=== PATIENT | female | born 2000 | race Two or more races ===

== ENCOUNTER 2024-04-30 17:35 | Emergency (ER) | payer MEDICAID, OTHER ==
[~2024-04-30] VITALS: Ht 154.9 cm; Wt 67.3 kg
--- NOTE | 2024-04-30 18:26 | ED.PDOC ---
General HPI Comments 23 y.o female presents to the ED for a chief complaint of back pain radiating to bilateral flank and to abdomen that started 2 hours ago. Patient describes pain as sharp, taking her breath away and constant. Patient reports similar pain on 04/12/24, went to the ED and had CT scan with blood work done but was not updated on diagnosis. Patient reports nausea and vomiting today with vomiting improving pain. Vital signs were stable on arrival. Chief Complaint: Flank Pain Time Seen by MD: 18:21 Primary Care Provider: NONE Reviewed notes: Nurses Notes, Medications, Allergies Allergies: Coded Allergies: NO KNOWN ALLERGIES (Unverified , 04/30/24) Information Source: Patient Mode of Arrival: Ambulatory Severity: Moderate Timing: Hours Duration: Since onset Onset: Spontaneous History of: None Location: Abdomen, (R) Flank, (L)Flank associated signs and symptoms: Nausea, Vomiting, Flank Pain, Back Pain Past Medical History PAST MEDICAL HISTORY: Denies Surgical History: Denies all surgeries PARTS ROOM ASSOCIATE History: No Pertinent PARTS ROOM ASSOCIATE History Family History Family History: Reviewed,noncontributory to illness Social History Smoker: Non-Smoker Alcohol: Denies ETOH Use Drugs: Denies Drug Use Lives In: Home Constitutional: denies: chills, diaphoresis, fatigue, fever, malaise, sweats, weakness, others EENTM: denies: blurred vision, double vision, ear bleeding, ear discharge, ear drainage, ear pain, ear ringing, eye pain, eye redness, hearing loss, mouth pain, mouth swelling, nasal discharge, nose bleeding, nose congestion, nose pain, photophobia, tearing, throat pain, throat swelling, voice changes, others Respiratory: denies: cough, hemoptysis, orthopnea, SOB at rest, shortness of breath, SOB with excertion, stridor, wheezing, others Cardiovascular: denies: chest pain, dizzy spells, diaphoresis, Dyspnea on exertion, edema, irregular heart beat, left arm pain, lightheadedness, palpitati ons, PND, syncope, others Gastrointestinal: reports: abdominal pain, nausea, vomiting; denies: abdomen distended, blood streaked bowels, constipated, diarrhea, dysphagia, difficulty swallowing, hematemesis, melena, poor appetite, poor fluid intake, rectal bleeding, rectal pain, others Genitourinary: reports: flank pain; denies: abnormal vagina bleeding, burning, dyspareunia, dysuria, frequency, hematuria, incontinence, pain, , vagina discharge, urgency, others Neurological: denies: dizziness, fainting, headache, left sided numbness, left sided weakness, numbness, paresthesia, pre-existing deficit, right sided numbness, right sided weakness, seizure, speech problems, tingling, tremors, weakness, others Musculoskeletal: reports: back pain; denies: gout, joint pain, joint swelling, muscle pain, muscle stiffness, neck pain, others Integumetry: denies: bruises, change in color, change in hair/nails, dryness, laceration, lesions, lumps, rash, wounds, others Allergic/Immunocompromised: denies: Difficulty Healing, Frequent Infections, Hives, Itching, others Hematologic/Lymphatic: denies: anemia, blood clots, easy bleeding, easy bru ising, swollen glands, others Endocrine: denies: excessive hunger, excessive sweating, excessive thirst, e xcessive urination, flushing, intolerance to cold, intolerance to heat, unexplained weight gain, unexplained weight loss, others Psychiatric: denies: anxiety, bipolar disorder, depression, hopeless, panic disorder, schizophrenia, sleepless, suicidal, others All Other Systems: Reviewed and Negative Physical Exam General Appearance: Moderate Distress (Lday-[id number] distress due to bilateral flank pain concerns.), Normal HEENT: Normal ENT Inspection, Pharynx Normal, TMs Normal Neck: Full Range of Motion, Non-Tender, Normal, Normal Inspection Respiratory: Chest Non-Tender, Lungs Clear, No Accessory Muscle Use, No Resp iratory Distress, Normal Breath Sounds Cardiovascular: No Edema, No JVD, No Murmur, No Gallop, Normal Peripheral Pulses, Regular Rate/Rhythm Breast Exam: Deferred Gastrointestinal: Other (Diffuse bilateral tenderness to palpation without definitive CVA tenderness on either side. Patient states pain radiates towards back and abdomen. No signs of trauma.) Genitalia: Deferred Pelvic: Deferred Rectal: Deferred Extremities: No calf tenderness, Normal capillary refill, Normal inspection, Normal range of motion, Non-tender, No pedal edema Neurologic: Alert, invasive cardiologist II-XII nml as Tested, No Motor Deficits, Normal Affect, Normal Mood, No Sensory Deficits Cerebellar Function: Normal Reflexes: Normal Skin: Dry, Normal Color, Warm Lymphatic: No Adenopathy Was a procedure done? Was a procedure done?: No Differential Diagnosis Kidney stone (Female): Musculoskeletal pain, Pyelonephritis Urinary Problem (Female): UTI X-Ray, Labs, Meds, VS Vital Signs Date Time Temp Pulse Resp B/P (MAP) Pulse Ox O2 Delivery O2 Flow Rate FiO2 04/30/24 18:36 82 16 96 Room Air* 0 21 04/30/24 18:30 97.9 82 18 118/73 (88) 96 97.9 04/30/24 17:49 98.7 100 16 117/76 (90) 99 Lab Test 04/30/24 17:55 Range/Units Urine Color Light-yellow Yellow Urine Clarity Turbid H Clear Urine pH 7.0 5.0-9.0 Urine Specific Dixon 1.017 1.001-1.035 Urine Protein Negative Negative Urine Ketones Negative Negative Urine Blood Negative Negative /uL Urine Nitrite Negative Negative Urine Bilirubin Negative Negative Urine Urobilinogen Normal Negative mg/dL Urine Leukocyte Esterase 3+ Negative /uL Urine RBC 3 0 - 4 /hpf Urine WBC 12 0 - 5 /hpf Urine Squamous Epithelial Cells Mod <5 /hpf Urine Bacteria None seen None Seen /hpf Urine Mucus Few None Seen Urine Glucose Normal Normal mg/dL Urine Test Negative Negative Current Medications Medications (Trade) Dose Ordered Sig/Rudi Route Start Time Stop Time Status Last Admin Ketorolac Tromethamine (Toradol Injection) 30 mg ONCE ONCE IM 04/30/24 18:15 04/30/24 18:16 DC 04/30/24 18:33 Ondansetron HCl (Zofran Po) 4 mg ONCE ONCE PO 04/30/24 18:15 04/30/24 18:16 DC 04/30/24 18:33 X-Ray, Labs, Meds, VS Comment All studies performed in the ED today were evaluated by me personally. Urinal ysis is confirmation for UTI. Patient was given 1st dose of antibiotics prior to discharge. Advise utilizing antibiotics as directed as well as pain medication as needed. Good hydration throughout illness event. Time of 1ST Reevaluation: 19:29 Reevaluation 1ST: Improved Consultation: PCP Patient Education/Counseling: Diagnosis, Treatment, Prognosis Family Education/Counseling: Diagnosis, Treatment, No Family Present Departure 1 Departure Time of Disposition: 19:30 Impression: Primary Impression: UTI (urinary tract infection) Disposition: 01 HOME / SELF CARE / HOMELESS Condition: Stable Additional Instructions: Advise utilizing antibiotics as directed until completion as well as additional medication as needed for symptomatic relief. Good hydration and healthy nutrition throughout. e-Prescriptions Ondansetron Odt 4MG Tab (ZOFRAN PO) 4 Mg Tb 4 MG PO Q6HP PRN, #15 TAB ODT TAB-DISSOLVE IN MOUTH, THEN SWALLOW Prov: DIVYA MARIE PAC 04/30/24 Ibuprofen Micronized (Ibuprofen) 800 Mg Tab 800 MG PO Q8HP PRN, #15 TAB Prov: DIVYA MARIE PAC 04/30/24 Nitrofurantoin Monohydrate Mac (Macrobid) 100 Mg Cap 100 MG PO BID for 7 Days, #14 CAP Prov: DIVYA MARIE PAC 04/30/24 Discharged With: Self, Friend Critical Care Note Critical Care Time?: No Stability Stability form required: No I personally scribed for DIVYA MARIE PAC ([email or web address]) on 04/30/24 at 18:26. Electronically submitted by Niki Rose ([facility]). DIVYA MARIE PAC Apr 30, 2024 18:26
[2024-04-30 18:31] LABS: Urine Bacteria None Seen /hpf (None Seen)
[2024-04-30] MEDS: KETOROLAC TROMETH 60MG/2ML VIAL IM ONE (18:33)
[2024-04-30] MEDS: ONDANSETRON ODT 4 MG TAB PO ONE (18:33)
[2024-04-30 18:36] VITALS: PULSE 82; RESP 16; O2SAT 96
[2024-04-30 18:44] LABS: Urine Blood Negative /uL (Negative); Urine Clarity Turbid (Clear); Urine Color Light-Yellow (Yellow); Urine Mucus FEW (None Seen); Urine Protein, UAD Negative (Negative); Urine Specific Gravity 1.017 (1.001-1.035); Urine Squamous Epithelial Cell MOD /hpf (<5); Urine Urobilinogen Normal (Negative); Urine WBC 12 /hpf (0 - 5)
[2024-04-30] MEDS ORDERED: ZOFR4T PO (19:31)
[2024-04-30] MEDS ORDERED: IBUP-1455 PO (19:31)
[2024-04-30] MEDS ORDERED: NITR-87 PO (19:31)
[2024-04-30] MEDS: NITROFURANTOIN 100 mg CAP PO ONE (20:01)
[2024-04-30 20:03] VITALS: BP 112/64; PULSE 70; RESP 17; TEMP 98.3; O2SAT 97
== END 2024-04-30 20:05 | disposition home or self-care (01) ==
LOC: ER 17:35
DX: N39.0 Urinary tract infection, site not specified (principal); Z32.02 Encounter for pregnancy test, result negative
CPT/HCPCS: 81001; 81025; 96372; 99283; J1885; Q0162